=== PATIENT | female | born 1955 | race Caucasian/White ===

== ENCOUNTER 2022-10-28 13:32 | Emergency (ER) | payer MEDICARE, MEDICAID ==
[~2022-10-28] VITALS: Ht 162.6 cm; Wt 76.7 kg
[2022-10-28 13:45] VITALS: BP_SYST 133
--- NOTE | 2022-10-28 13:45 | NUR ---
Patient triaged and placed in waiting room. VSS and patient appears in no acute distress at this time. Accompanied by DAUGHTER, awaiting available bed, and MD notified of need for MSE.
--- NOTE | 2022-10-28 13:50 | NUR ---
ER DR. MORFIN EXAMINING PT IN TRIAGE
[2022-10-28] MEDS ORDERED: ACYCLOVIR IV 750 MG in D5W 100 ML IV ONE (14:00)
[2022-10-28] MEDS ORDERED: KETOROLAC TROMETHAMINE 30 MG VIAL IVP ONE (14:00)
--- NOTE | 2022-10-28 14:31 | NUR ---
urine sent to lab for ua
[2022-10-28] MEDS ORDERED: ACYCLOVIR SODIUM 50 MG/ML VIAL IV ONE (14:48)
[2022-10-28] MEDS ORDERED: MORPHINE 4 MG INJ. 4 MG/ML VIAL IVP ONE (15:30)
[2022-10-28] MEDS ORDERED: NEU300 PO (17:00)
[2022-10-28] MEDS ORDERED: CALA TP (17:00)
[2022-10-28] MEDS ORDERED: NAPR-1172 PO (17:01)
--- NOTE | 2022-10-28 17:13 | NUR ---
Patient given written and verbal discharge instructions and verbalizes understanding. ER MD discussed with patient the results and treatment provided. Patient in stable condition. ID arm band removed. IV catheter removed intact and dressing applied, no active bleeding. Rx of CALMINE,NAPROXYN,NEURONTIN given. Patient educated on pain management and to follow up with PMD. Pain Scale . Opportunity for questions provided and answered. Medication side effect fact sheet provided.
[2022-10-28 17:14] VITALS: BP_SYST 127
== END 2022-10-28 17:13 | disposition home or self-care (01) ==
LOC: SED 13:32
DX: B02.9 Zoster without complications (principal); R06.02 Shortness of breath; Z79.899 Other long term (current) drug therapy
CPT/HCPCS: 99284; 96365; 71045; 96375; J0133; J1885; J2270